=== PATIENT | female | born 1970 | race African-American/Black ===

== ENCOUNTER 2021-08-07 18:54 | Emergency (ER) | payer BC ==
[2021-08-07 19:04] VITALS: TEMP 98; BMI 21.0
[2021-08-07] MEDS ORDERED: IBUPROFEN 600 MG TABLET (FP) PO ONE ×2 (19:50→20:05)
[2021-08-07] MEDS ORDERED: LISINOPRIL 20 MG TABLET PO SCH (21:45)
[2021-08-07] MEDS ORDERED: LISINOPRIL 20 MG TABLET ONE (22:25)
[2021-08-07 23:26] VITALS: BP 173/115; PULSE 81
== END 2021-08-07 23:42 | disposition home or self-care (01) ==
LOC: JER 18:54
DX: S86.112A Strain of other muscle(s) and tendon(s) of posterior muscle group at lower leg level, left leg, initial encounter (principal); W18.40XA Slipping, tripping and stumbling without falling, unspecified, initial encounter; Y92.9 Unspecified place or not applicable
CPT/HCPCS: 73560-TC-LT-FY; 73590-TC-LT-FY; 99284-25

== ENCOUNTER 2024-08-16 18:22 | Emergency (ER) | payer BC, OTHER ==
[2024-08-16 18:28] VITALS: BP 152/100; PULSE 85; RESP 18; TEMP 98.5; BMI 24.3
[2024-08-16] MEDS ORDERED: CARVEDILOL 3.125 MG TABLET (FP) ONE (19:19)
[2024-08-16] MEDS ORDERED: ONDANSETRON 4 MG/2 ML VIAL ONE (19:20)
[2024-08-16] MEDS ORDERED: FAMOTIDINE 20 MG/50 ML IVPB 20 MG/50 ML MG IVPB ONE (19:20)
[2024-08-16] MEDS ORDERED: MAG HYDROX/AL HYDROX/SIMETH 30 ML UNIT-DOSE CUP ONE (19:20)
[2024-08-16 19:25] LABS: BASO % 0.4 % (0-2.0); EOS % 4.8 % (0-4.5); HEMATOCRIT 38.5 % (32.4-45.2); HEMOGLOBIN 12.5 GM/dL (10.7-15.3); LYMPH % 29.4 % (8-40); MCH 26.2 pg (25.7-33.7); MCHC 32.6 g/dl (32.0-36.0); MEAN CELL VOLUME 80.3 fl (80-96); MEAN PLT VOLUME 7.7 fl (7.5-11.1); MONO % 6.9 % (3.8-10.2); NEUT % 58.5 % (42.8-82.8); PLATELET COUNT 383 10^3/uL (134-434); RBC 4.79 M/mm3 (3.60-5.2); RDW 14.8 % (11.6-15.6); WHITE BLOOD COUNT 8.5 K/mm3 (4.0-10.0)
[2024-08-16] MEDS: ONDANSETRON 4 MG/2 ML VIAL IVPUSH ONE (19:29)
[2024-08-16] MEDS: MAG HYDROX/AL HYDROX/SIMETH 30 ML UNIT-DOSE CUP PO ONE (19:29)
[2024-08-16] MEDS: FAMOTIDINE 20 MG/50 ML IVPB 20 MG/50 ML MG IVPB ONE (19:29)
[2024-08-16 19:32] LABS: INR 0.95 (0.83-1.09); PROTHROMBIN TIME (PATIENT) 10.8 SEC (9.7-13.0)
[2024-08-16 19:35] LABS: ACTIVATED PTT 32.6 SECONDS (25.2-36.5)
[2024-08-16 19:42] LABS: POTASSIUM 3.9 mmol/L (3.5-5.1)
[2024-08-16 19:45] LABS: ALBUMIN 3.7 g/dl (3.4-5.0); BLOOD UREA NITROGEN 7.2 mg/dL (7-18)
[2024-08-16 19:49] LABS: BILIRUBIN,TOTAL 0.2 mg/dL (0.2-1); TOT PROT 7.8 g/dl (6.4-8.2)
[2024-08-16] MEDS: amLODIPine BESYLATE 10 MG TABLET (FP) PO ONE (20:52)
[2024-08-16] MEDS ORDERED: ACETAMINOPHEN 500 MG TABLET (FP) ONE (20:54)
[2024-08-16] MEDS: ACETAMINOPHEN 500 MG TABLET (FP) PO ONE (20:56)
[2024-08-16] MEDS ORDERED: KETOROLAC TROMETHAMINE 15 MG/ML VIAL ONE (22:26)
[2024-08-16] MEDS: KETOROLAC TROMETHAMINE 15 MG/ML VIAL IVPUSH ONE (22:39)
[2024-08-16 23:53] LABS: URINE APPEARANCE CLEAR; URINE COLOR YELLOW; URINE GLUCOSE (UA) NEGATIVE (NEGATIVE)
[2024-08-16 23:54] LABS: URINE BILIRUBIN NEGATIVE (NEGATIVE); URINE KETONE NEGATIVE (NEGATIVE); URINE LEUK ESTERASE NEGATIVE (NEGATIVE); URINE NITRITE NEGATIVE (NEGATIVE); URINE PROTEIN NEGATIVE (NEGATIVE); URINE UROBILINOGEN 0.2 mg/dL (0.2-1.0)
== END 2024-08-16 23:50 | disposition home or self-care (01) ==
LOC: JER 18:22
PROC: 3E033GC Introduction of Other Therapeutic Substance into Peripheral Vein, Percutaneous Approach (ICD-10-PCS; principal; 2024-08-16)
PROC: 3E033GC Introduction of Other Therapeutic Substance into Peripheral Vein, Percutaneous Approach (ICD-10-PCS; 2024-08-16)
DX: R10.13 Epigastric pain (principal)
CPT/HCPCS: 36415; 71046-TC-FY; 74177-TC; 76705-TC; 80053; 81003; 83690; 84484; 85025; 85610; 85730; 87086; 93005; 93010; 99285-25; Q9967